=== PATIENT | male | born 2000 | race Caucasian/White ===

== ENCOUNTER 2024-11-28 14:58 | Emergency (ER) | payer BC, SELFPAY ==
[2024-11-28 15:01] VITALS: BP 113/81; PULSE 103; RESP 16; O2SAT 97; BMI 24.8
--- OUTSIDE RECORDS SUMMARY | 2024-11-28 15:02 | XMS_ITS | Clinical Summary ---
Author Organization [email or web address] [facility] Address [address] [place] [id number] Care Team Providers Care Tank Maker Wood Name Role Phone Shahnaz Vega DO Primary Care Provider [phone] Allergies Active Allergy Reactions Criticality Noted Date Comments Cats (Fur, Dander, Saliva) Hives 9 Lurasidone Anaphylaxis High 05/22/2016 Medications fexofenadine (MAHNAZ) 180 mg tablet TK 1 T PO D 0 6 Active famotidine (PEPCID) 10 mg tablet Take 10 mg by mouth once daily. Active dextroamphetamine -amphetamine (AdderalL) 5 mg tabletIndications :Attention deficit hyperactivity disorder (ADHD), predominantly inattentive type Take 5 mg daily for 2 weeks then take 2.5 mg daily for 2 weeks then stop. 21 Tablet 5 Active propranoloL 10 mg tabletIndications :Attention deficit hyperactivity disorder (ADHD), predominantly inattentive type Take 1 tablet three times daily as needed for Anxiety. 45 Tablet 3 5 Active dextroamphetamine -amphetamine (Adderall XR) 10 mg Extended-Release capsuleIndication s:Attention deficit hyperactivity disorder (ADHD), predominantly inattentive type Take 1 Capsule (10 mg) by mouth once daily. 30 Capsule 5 11/07/19 25 dextroamphetamine -amphetamine (Adderall XR) 10 mg Extended-Release capsuleIndication s:Attention deficit hyperactivity disorder (ADHD), predominantly inattentive type Take 1 Capsule (10 mg) by mouth once daily. 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 Anxiety 03/27/2016 Major depressive disorder 09/03/2013 Overview (04/16/2023): Overview: Depressive Disorder, Not Elsewhere Classified Depression Resolved Problems Problem Noted Date Diagnosed Date Resolved Date Mild episode of recurrent ma marcia depressive disorder 09/13/2018 09/07/2024 MDD (major depressive disord er), recurrent episode, moderate 03/27/2016 Encounters Date Type Department Care Team Description 11/22/2024 1:30 PM CDT Office Visit [facility] [address] [place] [address] Hi Sky MD Psychiatric Problem (Concerns with anxiety and withdrawals from Adderall ) 11/22/2024 Travel 11/22/2024 Nurse Triage [facility] [address] [place] [address] Shahnaz Vega, DO Chest Pain; Anxiety 09/07/2024 9:10 AM CDT Office Visit [facility] [address] [place] [address] Dexter Smith MD Medication Management 09/07/2024 Travel from Last 3 Months Immunizations Immunization Administration Dates Next Due DTP 08/25/2003, 1,01/22/2000,10/04,1998 DTaP 08/25/2003, 1,01/22/2000,10/04,1998 DTaP-HIB (TriHIBIT) 02/25/2001 HIB-HepB (Comvax) 1998,1998 HPV 9 (Gardasil 9) 08/02/2019,01/11/2019, 018 Hepatitis B (Peds) 1998,1998, 998 Hepatitis B, Unspecified 1998,1998,1 Hib Conjugate, Unspecified 02/25/2001,1998 ,1998 Inactivated Polio Vaccine 08/25/2003,,1998,06/13 Influenza Virus, Unspecified 03/05/2011 Influenza, High-dose Inactivated 03/10/2016 Influenza, IIV3 (Age 6-35 mos) 03/05/2011 Influenza, IIV3 (Age >=3 years) 03/28/2016,03/05 Influenza, IIV4 03/28/2016 MENINGOCOCCAL VACCINE 2 VIAL [id number] (MENVEO) 08/10/2017 MMR 08/25/2003,01/21/2001,01/22/2000 Tdap 12/19/2022,03/05/2011 Varicella Vaccine 03/05/2011,08/25/2003 Family History Medical History Relation Name Comments Other Brother 1 Sammy Other Father Gilwong's Disea se Stroke Maternal Grandfather Dementia Maternal Grandmother Other Maternal Grandmother Degener ative joint disorder Psychiatric illness Maternal Uncle depralessia rose Alcoholism Mother Psychiatric illness Mother depressi on episodes throught her life Heart Disease Other Hypertension No Family History Relation Name Status Comments Brother 1 Sammy Alive Brother 2 Luis Alive Father Alive Maternal Grandfather Maternal Grandmother Maternal Uncle Mother Alive Other Social History Tobacco Use Types Packs/Day Years Used Date Smoking Tobacco: Never Passive Smoke Exposure: Yes Smokeless Tobacco: Never Tobacco Cessation:Counseling Given: Yes Comments:mom and grandma smoke around him, doesn't live with mom. Alcohol Use Standard Drinks/Week Comments Not Currently 19 (1 standard drink = 0.6 oz pure alcohol) started drinking last 3 weeks PHQ-2 Answer Date Recorded PHQ-2 TOTAL SCORE 3 11/22/2024 Social Connections Answer Date Recorded Do you often feel lonely or isolated from those around you? 0 04/18/2024 Alcohol Use Answer Date Recorded How often do you have a drink containing alcohol ? 4 11/22/2024 How many drinks containing a lcohol do you have on a typical day when you are drinking? 1 11/22/2024 How often do you have five or more drinks on one occasion? 2 11/22/2024 Financial Resource Strain Answer Date R ecorded Difficulty of Paying Living Expenses 3 04/16/2023 Difficulty of Paying Living Expenses Not on file 04/16/2023 Food Insecurity Answer Date Recorded Do you worry your food will run out before you are able to buy more? 1 04/18/2024 Transportation Needs Answer Date Record ed Does lack of transportation keep you from medica l appointments? 1 04/18/2024 Does lack of transportation keep you from work, meetings or getting things that you need? 1 04/18/2024 Housing Stability Answer Date Recorded What is your housing situation today? 1 04/18/2024 Utilities Answer Date Recorded Do you have trouble paying f or utilities (for example, heat, electricity, water, phone)? 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 Sexual Orientation Not on file Occupation Industry Job Start Date Job End Date Not on file Not on file Not on file Not on file Not on file Not on file Not on file Not on file Obstetrics History Last Filed Vital Signs Vital Sign Reading Time Taken Comments Blood Pressure 120/70 11/22/2024 1:49 PM CDT Pulse 77 11/22/2024 1:49 PM CDT Temperature 36.9 C (98.5 F) 11/22/2024 1:49 PM CDT Respiratory Rate 16 10/01/2021 3:40 PM CDT Oxygen Saturation 98% 11/22/2024 1:49 PM CDT Inhaled Oxygen Concentration - - Weight 85.5 kg (188 lb 6.4 oz) 11/22/2024 1:49 P M CDT Height 183.5 cm (6' 0.24) 11/22/2024 1:49 PM CD T Body Mass Index 25.38 11/22/2024 1:49 PM CDT Plan of Treatment Upcoming Encounters Date Type Department Care Team (Late st Contact Info) Description 12/07/2024 7:30 AM CDT Office Visit [facility] [address] [place] [address] Dexter Smith MD [address] [place] [address] Health Maintenance Due Date Last Done Comments HIV for age 15-65 2013 Hepatitis C screening for age 18-79 2016 COVID-19 vaccine series (2023- season) 2024 Influenza Vaccine (Season Ended) 2025 03/28/2016, 03/28/2016, 03/10/2016, Additional history exists BMI (ht and wt on same day) for age 18+ 11/22/2025 11/22/2024, 11/19/2018, 11/16/2018, Additional history exists Depression screening for age 12+ 11/22/2025 11/22/2024, 09/07/2024, 01/01/2024, Additional history exists Tetanus booster 12/19/2032 12/19/2022, 03/05/2011 Hepatitis B series for 19+ Completed 10/04, 1998, 1998, Additional history exists HPV series for age 9-26 Completed 08/02/19 20, 01/11/2019, 08/10/2017 Tdap Completed 12/19/2022, 03/05/2011 Pneumococcal series for age 6-49 Aged Out No longer eligible based on patient's age to complete this topic Insurance [facility] Advance Directives * Full Code (Latest Code Status on File) Date Activated Date Inactivated Comments 03/27/2016 12:13 AM 03/30/2016 4:49 PM Care Teams Tank Maker Wood Relationship Specialty Start Date End Date Shahnaz Vega DO [address] [place] [address] PCP - General Family Practice 12/19/22
--- NOTE | 2024-11-28 15:35 | ED.GENADULT ---
HPI - General Adult General Chief complaint: Unspecified Complaint, Adult Stated complaint: Dehydrated Time Seen by Provider: 11/28/24 15:22 History of Present Illness HPI narrative: This 24-year-old male comes in stating that he feels like he is behind on fluids. He states that 3 days ago he was working and the conditions are rather hot. Additionally he chose to take some alcohol this past week and and Misael valenzuela is weaning off of Adderall. He also had some mushrooms this week and. He arrives here with normal vital signs except he is borderline tachycardia with a heart rate at 103. He states that he is otherwise in good health. He did present to urgent care wanting to get IV fluids but was sent here for that purpose. Related Data Home Medications ?Medication ?Instructions ?Recorded ?Confirmed dextroamphetamine-amphetamine ER 20 mg PO QDAY 08/27/23 08/27/23 20 mg 24hr capsule,extend release (Adderall XR) Allergies Allergy/AdvReac Type Severity Reaction Status Date / Time lurasidone (From Latuda) Allergy Anaphylaxis Verified 08/27/23 12:23 Review of Systems Status of ROS: Reports: 10 or more systems reviewed and unremarkable except as noted in History and below Narrative: Constitutional: No fevers, no weight gain or loss. Eyes: No discharge. No vision changes. HENT: No congestion, no sore throat, no ear pain. Cardiovascular: No chest pain, no palpitations. Respiratory: No shortness of breath, no wheezes, no cough. Gastrointestinal: No abdominal pain, no vomiting, no diarrhea. Genitourinary: No dysuria, no hematuria. Musculoskeletal: Normal range of motion. Skin: No rashes, no pruritis. Neurological: No dizziness, weakness, sensory change, speech change. Endo/Heme/Allergies: No bruising or bleeding. No polydipsia. Pysch: no suicidality, no anxiety, no insomnia. All other systems reviewed and are negative. PFSH PFSH Social History Smoking Status: Current some day smoker Do you use any of these nicotine containing products: Vaping Products How often do you have a drink containing alcohol: 2-4 times a month How many standard drinks containing alcohol do you have on a typical day: 5 or 6 How often do you have six or more drinks on one occasion: Never AUDIT-C Alcohol total score: 4 Non-prescribed substance use: marijuana (any form) and other Non-prescribed substance use details: mushrooms Exam Narrative: Exam Narrative: Constitutional: Well-developed, well-nourished, no acute distress. HEENT: Normocephalic, atraumatic. Neck: Normal range of motion. Nontender. Supple. Heart: Regular. No murmurs. Normal rate. Intact distal pulses. Lungs: Clear to auscultation. No chest discomfort. No wheezes, rhonchi, or rales. Abdomen: Normal bowel sounds. Nontender. No rebound tenderness. Genitalia: Deferred. Back: No midline tenderness. Normal range of motion. Extremities: Normal range of motion. No injury. Skin: Intact. No rash. Warm. No erythema or pallor. Neurologic: No altered sensation. No weakness. Alert and oriented. Psychiatric: No suicidality. No anxiety or depression. No insomnia. Nursing notes and vitals signs are reviewed. Const: Vital Signs, click to edit/add: Vital Signs - 24 hr 11/28/24 15:01 Pulse Rate [Pulse Oximeter] 103 H Respiratory Rate 16 Blood Pressure [Ri ght Upper Arm] 113/81 Pulse Oximetry 97 Oxygen Delivery Me thod Room Air Course Vital Signs Vital signs: Initial Vital Signs Pulse Rate 103 H 11/28/24 15:01 Respiratory Rate 16 11/28/24 15:01 Blood Pressure 113/81 11/28/24 15:01 Blood Pressure Mean 91 11/28/24 15:01 Blood Pressure Position Sitting 11/28/24 15:01 Pulse Oximetry 97 11/28/24 15:01 Oxygen Delivery Method Room Air 11/28/24 15:01 Vital Signs Pulse Rate 103 H 11/28/24 15:01 Respiratory Rate 16 11/28/24 15:01 Blood Pressure 113/81 11/28/24 15:01 Pulse Oximetry 97 11/28/24 15:01 Oxygen Delivery Method Room Air 11/28/24 15:01 Pulse Rate 103 H 11/28/24 15:01 Respiratory Rate 16 11/28/24 15:01 Blood Pressure 113/81 11/28/24 15:01 Pulse Oximetry 97 11/28/24 15:01 Oxygen Delivery Method Room Air 11/28/24 15:01 Medications Administered Medications: Discontinued Medications Generic Name Dose Route Start Last Admin Trade Name Freq PRN Reason Stop Dose Admin Sodium Chloride 1,000 mls @ 1,000 mls/hr 11/28/24 15:45 11/28/24 16:37 0.9 % Sodium Chloride 1000 Ml IV 11/28/24 16:44 Infused .Q1H CHAD Infusion Medical Decision Making MDM Narrative Medical decision making narrative: This 24-year-old male feels that he is behind on fluids in is requesting IV fluids. He does arrive here with borderline tachycardia. An IV was established where he did receive a L of normal saline and states that he is feeling better. I advised him to continue with oral liquids more aggressively for a while. Discharge Plan Discharge Clinical Impression: Fluid volume depletion Patient Disposition: Home, Self-Care Condition: Stable Additional Instructions: Take plenty of fluids and increase diet as tolerated. Follow up with MD return if worsening. Prescriptions: No Action dextroamphetamine-amphetamine [Adderall XR] 20 mg capsule,extended release 24hr 20 mg PO QDAY Follow Up/Referrals: Provider,Not a Local [Primary Care Provider, Family Practice] Stand Alone Forms: [employer] Info Instructions
[2024-11-28] MEDS: 0.9 % SODIUM CHLORIDE 1000 ml 1,000 ML IV (15:43)
== END 2024-11-28 17:04 | disposition home or self-care (01) ==
PROVIDERS: Emergency Provider Emergency Medicine Emergency Medical Services
DX: E86.9 Volume depletion, unspecified (principal)
CPT/HCPCS: 99283; 99284; J7030